=== PATIENT | female | born 1960 | race Hispanic/Latino ===

== ENCOUNTER 2016-09-29 09:57 | Day surgery (SDC) | payer MEDICARE ==
[2016-09-29] MEDS ORDERED: NACL 0.9% 1000 ML 1,000 ML IV SCH (12:00)
[2016-09-29] MEDS ORDERED: DIPRIVAN 10 MG/ML IV ONE ×2 (13:25)
--- NOTE | 2016-09-29 14:12 | Anesthesia Day of Surgery ---
Anesthesia Day of Surgery - Day of Surgery Patient Examined: Yes Patient H&P Reviewed: Yes Patient is NPO: Yes Beta Blockers: Yes Cardiac Clearance: No Pulmonary Clearance: No
--- NOTE | 2016-09-29 14:13 | Anesthesia Consultation ---
Anesthesia Consult and Med Hx - Pulmonary Hx Smoking: Yes (remote) Hx Asthma: No COPD: Yes Hx Pneumonia: Yes - Cardiovascular System Hx Hypertension: Yes Hx Coronary Artery Disease: Yes (saw category planner recently, said her heart was good) Hx Heart Attack/AMI: Yes Hx Pacemaker: No Hx Internal Defibrillator: No - Central Nervous System Hx Seizures: Yes - Endocrine Hx End Stage Renal Disease: No Hx Thyroid Disease: Yes Hx Hypothyroidism: Yes - Hematic Hx Anemia: Yes - Other Systems Hx Alcohol Use: Yes Hx Substance Use: Yes
[2016-09-29] MEDS ORDERED: XYLOCAINE 2% INFILTRATI ONE (15:26)
[2016-09-29] MEDS ORDERED: WATER FOR IRRIG STERILE IR ONE (15:36)
[2016-09-29] MEDS ORDERED: WATER FOR IRRIG STERILE ONE (15:53)
--- NOTE | 2016-09-29 16:14 | Discharge Summary ---
Short Stay Discharge Plan Activity: advance as tolerated Weight Bearing Status: Weight Bear as Tolerated Diet: regular Follow up with: BERT BRISCOE DO [Primary Care Provider] - 7 Days
--- NOTE | 2016-09-29 16:14 | Operative Report ---
Operative Report Operative Report: 09/29/2016 Procedure: Colonoscopy. Attending physician: Williams Josue MD Clinical Psychology Professor: Williams Josue MD Indication: Patient is a 55-year-old female who presents for screening colonoscopy. She has a history of diffuse abdominal pain. A colonoscopy service to evaluate patients symptoms and also for colorectal cancer screening.. Consent: Informed consent was obtained after advising the patient and family regarding nature of this procedure, its indications, potential benefits as well as possible complications including but not limited to bleeding perforation and adverse reaction to medication, infection as well as other cardiopulmonary complications. An informed written and verbal consent was then obtained after due opportunity was provided for questions and answers. Monitoring: Patient was monitored continuously with pulse oximetry and electrocardiographic recordings as well as blood pressure recordings. Vital signs remained stable throughout this procedure with no untoward events. Preoperative assessment: Patient was assessed immediately prior to this procedure for capacity to tolerate monitored anesthesia care and moderate sedation as well as general anesthesia. Patient's ASA classification is 2, Mallampati class is 2, Hyomental distance is 3. Instrument: Fujinon videocolonoscope Medications: Propofol given intravenously in divided doses. For details please refer to anesthesia records. Description of procedure: Patient was placed in the left lateral decubitus position after achieving sedation, a digital rectal examination was performed following which the colonoscope was introduced into the anal verge and advanced to the cecum which was identified by the cecal valve, the appendiceal orifice, as well as by the cecal strap and direct transillumination. The colonoscope was subsequently withdrawn with careful inspection of all mucosal surfaces. Patient tolerated this procedure well and was subsequently taken to the recovery room. The following findings were noted. Findings: Patient had few diminutive diverticula in the sigmoid colon . The rest of the colon to the cecum was normal. On the retroflex view at the anal verge, patient had internal hemorrhoids. Impression: Mild Diverticulosis Internal hemorrhoids. Plan: High-fiber diet. When necessary stool softness Repeat colonoscopy in 10 years.
[2016-09-29 16:50] VITALS: BP 111/57
== END 2016-09-29 09:58 | disposition home or self-care (01) ==
LOC: GIO 09:57
PROVIDERS: ATTEND Internal Medicine Gastroenterology
DX: K57.30 Diverticulosis of large intestine without perforation or abscess without bleeding (principal); K64.8 Other hemorrhoids; J44.9 Chronic obstructive pulmonary disease, unspecified; I10 Essential (primary) hypertension; I25.10 Atherosclerotic heart disease of native coronary artery without angina pectoris; F41.9 Anxiety disorder, unspecified; F32.9 Major depressive disorder, single episode, unspecified; I25.2 Old myocardial infarction; E03.9 Hypothyroidism, unspecified; D64.9 Anemia, unspecified; Z87.01 Personal history of pneumonia (recurrent); Z72.89 Other problems related to lifestyle; Z87.891 Personal history of nicotine dependence; Z89.212 Acquired absence of left upper limb below elbow; Z79.82 Long term (current) use of aspirin; Z79.899 Other long term (current) drug therapy; Z80.1 Family history of malignant neoplasm of trachea, bronchus and lung
CPT/HCPCS: 45378; J2704

== ENCOUNTER 2016-12-22 11:02 | Outpatient (CLI) | payer MEDICARE ==
--- NOTE | 2016-12-22 12:23 | Ultrasound Report ---
Bilateral mammogram and left axillary ultrasound: The patient presents with history of sebaceous cyst or other mass in the left axilla. Routine mammographic views demonstrate a symmetrically distributed fibroglandular pattern which is generally fatty except for moderate fibroglandular density located in the retroareolar regions. No mass and no architectural distortion. No prior study for comparison. Left breast ultrasound in the axilla demonstrates a benign appearing 13 mm lymph node. The mass previously identified is a probable sebaceous cyst apparently has resolved. CAD used. Impression: Benign mammogram and left breast ultrasound: Recommendation: Annual mammogram followup. BI-RADS CATEGORY: 2 = Benign ACR BI-RADS MAMMOGRAPHIC CODES: 0 = Needs additional imaging evaluation; 1 = Negative; 2 = Benign; 3 = Probably benign; 4 = Suspicious; 5 = Malignant; 6 = Known biopsy-proven malignancy COMMENT: 1. Dense breast tissue, i.e., adenosis, fibrocystic changes, etc., may obscure an underlying neoplasm. 2. Approximately 10% of cancers are not detected with mammography. 3. A negative mammography report should not delay biopsy if a clinically suspicious mass is present.
== END 2016-12-22 11:03 | disposition home or self-care (01) ==
LOC: MAMMO 11:02
PROVIDERS: ATTEND Family Medicine
DX: N63 Unspecified lump in breast (principal); L72.3 Sebaceous cyst; R22.32 Localized swelling, mass and lump, left upper limb; I10 Essential (primary) hypertension; I25.10 Atherosclerotic heart disease of native coronary artery without angina pectoris; E78.00 Pure hypercholesterolemia, unspecified; J44.9 Chronic obstructive pulmonary disease, unspecified; E03.9 Hypothyroidism, unspecified; F31.9 Bipolar disorder, unspecified; D64.9 Anemia, unspecified; Z87.891 Personal history of nicotine dependence; Z79.899 Other long term (current) drug therapy
CPT/HCPCS: 76642; G0204; 77066